=== PATIENT | male | born 1965 | race Caucasian/White ===

== ENCOUNTER 2019-07-28 10:10 | Outpatient (CLI) | payer OTHER ==
[2019-07-28 11:07] LABS: BASOPHILS # (AUTO) 0.04 x10^3/uL (0-0.1); BASOPHILS % (AUTO) 0 % (0-1); EOSINOPHILS # (AUTO) 0.41 x10^3/uL (0-0.4); EOSINOPHILS % (AUTO) 4 % (1-7); LYMPHOCYTES # (AUTO) 2.28 x10^3/uL (1-3.4); LYMPHOCYTES % (AUTO) 24 % (22-44); MD NO; MEAN CORPUSCULAR HEMOGLOBIN 31.6 pg (27.5-34.5); MEAN CORPUSCULAR HGB CONC 33.2 g/dL (33.2-36.2); MEAN CORPUSCULAR VOLUME 95.3 fL (81-97); MEAN PLATELET VOLUME 10.1 fL (7.4-10.4); MONOCYTES # (AUTO) 0.61 x10^3/uL (0.2-0.8); MONOCYTES % (AUTO) 6 % (2-9); NEUTROPHILS # (AUTO) 6.24 x10^3/uL (1.8-6.8); NEUTROPHILS % (AUTO) 65 % (42-75); PLATELET COUNT 225 x10^3/uL (130-400); RED BLOOD COUNT 5.29 x10^6/uL (4.38-5.82)
[2019-07-28 11:25] LABS: ANION GAP 7 mmol/L (5-15); CALCIUM 8.9 mg/dL (8.5-10.1); CHLORIDE 111 mmol/L (98-107)
[2019-07-28 11:33] LABS: ALANINE AMINOTRANSFERASE 35 U/L (12-78); ALKALINE PHOSPHATASE 90 U/L (45-117); BILIRUBIN,TOTAL 0.5 mg/dL (0.2-1.0); CREATININE 0.89 mg/dL (0.7-1.3); TOTAL PROTEIN 7.8 g/dL (6.4-8.2)
[2019-07-28] MEDS ORDERED: None at This Time (11:51)
== END 2019-07-28 23:59 | disposition home or self-care (01) ==
LOC: STAR 10:10
PROVIDERS: ATTEND Surgery
DX: Z01.818 Encounter for other preprocedural examination (principal); R91.8 Other nonspecific abnormal finding of lung field; M47.814 Spondylosis without myelopathy or radiculopathy, thoracic region
CPT/HCPCS: 36415; 71046; 80053; 82378; 85025; 93005

== ENCOUNTER 2019-08-05 07:25 | Inpatient (IN) | payer OTHER ==
[~2019-08-05] VITALS: Ht 188 cm; Wt 125.3 kg
[~2019-08-05 07:25] MED LIST: BUPIVACAINE/PF 0.5% ONE; INDOCYANINE GREEN 25 MG VIAL ONE; None at This Time
[2019-08-05] MEDS ORDERED: ACETAMINOPHEN 500 MG TABLET PO ONE (08:30)
[2019-08-05] MEDS ORDERED: GABAPENTIN 300 MG CAPSULE PO ONE (08:30)
[2019-08-05] MEDS ORDERED: LACTATED RINGERS 1,000 ML IV SCH (08:31)
[2019-08-05 08:42] VITALS: BP 121/85
[2019-08-05] MEDS ORDERED: MIDAZOLAM 1 MG/ML, 2ML ONE (08:42)
[2019-08-05] MEDS ORDERED: FENTANYL PF 250 MCG/5ML ONE (08:43)
[2019-08-05] MEDS ORDERED: CEFOTETAN PMX 2GM/50ML 50 ML ONE (08:44)
[2019-08-05] MEDS ORDERED: PROPOFOL 10 MG/ML, 20ML ONE (08:48)
[2019-08-05] MEDS ORDERED: ROPIvacaine/PF 0.2%, 20 ML ONE ×3 (08:48)
[2019-08-05] MEDS ORDERED: ROCURONIUM 10MG/ML,5ML ONE (08:48)
[2019-08-05] MEDS ORDERED: GLYCOPYRROLATE 0.2MG/1ML, 5ML ONE (08:48)
[2019-08-05] MEDS ORDERED: CEFAZOLIN 1,000 MG ONE (08:48)
[2019-08-05] MEDS ORDERED: NEOSTIGMINE 1 MG/ML, 10ML ONE (08:48)
[2019-08-05] MEDS ORDERED: LIDOCAINE-MPF 1%, 2ML ONE (08:50)
[2019-08-05] MEDS ORDERED: LIDOCAINE-MPF 1%, 2ML INFIL ONE (09:00)
[2019-08-05] MEDS ORDERED: LABETALOL 5MG/ML, 20ML IV PRN (10:30)
[2019-08-05] MEDS ORDERED: ONDANSETRON 2MG/ML, 2ML IV PRN ×2 (10:30→16:30)
[2019-08-05] MEDS ORDERED: OXYcodone 5 MG/5 ML ORAL.SOL UDC PO PRN (10:30)
[2019-08-05] MEDS ORDERED: MEPERIDINE/PF 25MG/ML,1ML IVPush PRN (10:30)
[2019-08-05] MEDS ORDERED: MORPHINE SULFATE 4 MG/ML, 1ML IVPush PRN (10:30)
[2019-08-05] MEDS ORDERED: hydrALAzine 20 MG/ML, 1ML IV PRN (10:30)
[2019-08-05] MEDS ORDERED: HYDROmorphone 2 MG/ML, 1ML IVPush PRN (10:30)
[2019-08-05] MEDS ORDERED: FENTANYL PF 100 MCG/2ML ONE (14:09)
[2019-08-05] MEDS ORDERED: OXYcodone 5 MG/5 ML ORAL.SOL UDC ONE (14:10)
[2019-08-05] MEDS: FENTANYL PF 100 MCG/2ML IV PRN ×2 (14:15→14:25)
[2019-08-05] MEDS ORDERED: HYDROmorphone 1 MG/ML, 1ML INJ ONE (14:48)
[2019-08-05] MEDS ORDERED: DEXAMETHASONE 4 MG/ML, 1ML IVPush PRN (16:30)
[2019-08-05] MEDS ORDERED: CALCIUM CARBONATE 500 MG TAB.CHEW PO PRN (16:30)
[2019-08-05] MEDS ORDERED: TRAZODONE 50MG TABLET PO PRN (16:30)
[2019-08-05] MEDS ORDERED: SCOPOLAMINE PATCH, 1.5MG PATCH.TD72 TD PRN (16:30)
[2019-08-05] MEDS ORDERED: HALOPERIDOL 5 MG/ML IVPush PRN (16:30)
[2019-08-05] MEDS ORDERED: D5%-0.45NACL+KCL 20MEQ 1,000 ML IV SCH (16:30)
[2019-08-05] MEDS ORDERED: DIPHENHYDRAMINE 25 MG CAPSULE PO PRN (16:30)
[2019-08-05] MEDS ORDERED: LORazepam 1MG TABLET PO PRN (16:30)
[2019-08-05] MEDS ORDERED: DIPHENHYDRAMINE 50 MG/ML, 1ML IVPush PRN (16:30)
[2019-08-05] MEDS ORDERED: LORazepam 2 MG/ML, 1ML IVPush PRN (16:30)
[2019-08-05] MEDS: ACETAMINOPHEN 500 MG TABLET PO SCH ×2 (17:43→23:40)
[2019-08-05 20:39] VITALS: BP 128/78
[2019-08-05 23:37] VITALS: BP 118/74
[2019-08-06 03:18] VITALS: BP 120/69
[2019-08-06] MEDS: ACETAMINOPHEN 500 MG TABLET PO SCH ×4 (04:53→23:31)
[2019-08-06] MEDS: OXYcodone IR 5MG TABLET PO PRN ×2 (05:08→08:10)
[2019-08-06 05:57] LABS: BASOPHILS # (AUTO) 0.06 x10^3/uL (0-0.1); BASOPHILS % (AUTO) 0 % (0-1); EOSINOPHILS # (AUTO) 0.04 x10^3/uL (0-0.4); EOSINOPHILS % (AUTO) 0 % (1-7); LYMPHOCYTES # (AUTO) 1.56 x10^3/uL (1-3.4); LYMPHOCYTES % (AUTO) 10 % (22-44); MD NO; MEAN CORPUSCULAR HEMOGLOBIN 31.8 pg (27.5-34.5); MEAN CORPUSCULAR HGB CONC 33.7 g/dL (33.2-36.2); MEAN CORPUSCULAR VOLUME 94.5 fL (81-97); MEAN PLATELET VOLUME 9.1 fL (7.4-10.4); MONOCYTES # (AUTO) 1.07 x10^3/uL (0.2-0.8); MONOCYTES % (AUTO) 7 % (2-9); NEUTROPHILS # (AUTO) 13.58 x10^3/uL (1.8-6.8); NEUTROPHILS % (AUTO) 83 % (42-75); PLATELET COUNT 255 x10^3/uL (130-400); RED BLOOD COUNT 5.05 x10^6/uL (4.38-5.82); RED CELL DISTRIBUTION WIDTH 14.5 % (9.4-14.8)
[2019-08-06 06:13] LABS: CHLORIDE 110 mmol/L (98-107)
[2019-08-06 06:28] LABS: ANION GAP 7 mmol/L (5-15); CALCIUM 8.8 mg/dL (8.5-10.1); CREATININE 1.21 mg/dL (0.7-1.3)
[2019-08-06 07:36] VITALS: BP 119/76
[2019-08-06] MEDS: D5%-0.45NACL+KCL 20MEQ 1,000 ML IV SCH ×2 (08:10→19:33)
[2019-08-06] MEDS: ENOXAPARIN 40 MG/0.4 ML SQ SCH (11:53)
[2019-08-06 14:21] VITALS: BP 107/69
[2019-08-06] MEDS ORDERED: D5%-0.45NACL+KCL 20MEQ 1,000 ML IV SCH (18:00)
[2019-08-06 20:37] VITALS: BP 110/58
[2019-08-07 01:57] VITALS: BP 107/69
[2019-08-07 03:32] LABS: ANION GAP 3 mmol/L (5-15); BASOPHILS # (AUTO) 0.03 x10^3/uL (0-0.1); BASOPHILS % (AUTO) 0 % (0-1); CALCIUM 8.7 mg/dL (8.5-10.1); CHLORIDE 114 mmol/L (98-107); EOSINOPHILS # (AUTO) 0.29 x10^3/uL (0-0.4); EOSINOPHILS % (AUTO) 3 % (1-7); LYMPHOCYTES % (AUTO) 16 % (22-44); MD NO; MEAN CORPUSCULAR HEMOGLOBIN 31.8 pg (27.5-34.5); MEAN CORPUSCULAR HGB CONC 33.2 g/dL (33.2-36.2); MEAN CORPUSCULAR VOLUME 95.9 fL (81-97); MEAN PLATELET VOLUME 9.6 fL (7.4-10.4); MONOCYTES # (AUTO) 0.66 x10^3/uL (0.2-0.8); MONOCYTES % (AUTO) 6 % (2-9); NEUTROPHILS # (AUTO) 7.81 x10^3/uL (1.8-6.8); NEUTROPHILS % (AUTO) 74 % (42-75); PLATELET COUNT 221 x10^3/uL (130-400); RED BLOOD COUNT 4.79 x10^6/uL (4.38-5.82); RED CELL DISTRIBUTION WIDTH 14.6 % (9.4-14.8)
[2019-08-07] MEDS: ACETAMINOPHEN 500 MG TABLET PO SCH ×2 (05:29→11:47)
[2019-08-07 08:07] VITALS: BP 129/80
[2019-08-07] MEDS: ENOXAPARIN 40 MG/0.4 ML SQ SCH (12:18)
[2019-08-07] MEDS: D5%-0.45NACL+KCL 20MEQ 1,000 ML IV SCH (12:36)
[2019-08-07 14:09] VITALS: BP 121/71
[2019-08-07] MEDS ORDERED: OXYC-302 PO (15:04)
== END 2019-08-07 15:37 | disposition home or self-care (01) | DRG 330 ==
LOC: ORIP 07:25 → 4NE 15:42
PROVIDERS: ADMIT Surgery; ATTEND Surgery
PROC: 0DBN4ZZ Excision of Sigmoid Colon, Percutaneous Endoscopic Approach (ICD-10-PCS; 2019-08-05)
PROC: 8E0W4CZ Robotic Assisted Procedure of Trunk Region, Percutaneous Endoscopic Approach (ICD-10-PCS; 2019-08-05)
PROC: 0DTP4ZZ Resection of Rectum, Percutaneous Endoscopic Approach (ICD-10-PCS; principal; 2019-08-05 10:00)
DX: D12.5 Benign neoplasm of sigmoid colon (principal); K57.32 Diverticulitis of large intestine without perforation or abscess without bleeding
CPT/HCPCS: 36415; J3490; 80048; 85025; 86140; 86850; 86900; 88305; 88309; 88341; 88342; G0378; J0690; J1170; J1650; J2250; J2405; J2704; J2710; J2795; J3010; J3480; J7120